=== PATIENT | female | born 1975 | race Caucasian/White ===

== ENCOUNTER → 2024-02-16 07:19 | Outpatient (REF) | payer BC, SELFPAY | LOC: WDC 07:19 | PROVIDERS: ATTENDING PHYSICIAN Nurse Practitioner Primary Care | DX: Z12.31 Encounter for screening mammogram for malignant neoplasm of breast (principal) | CPT/HCPCS: 77063; 77067 ==

== ENCOUNTER 2024-11-20 13:31 | Emergency (ER) | payer BC, SELFPAY ==
[2024-11-20 13:34] VITALS: BP 149/85
--- NOTE | 2024-11-20 13:58 | ED.GENMED ---
History of Present Illness
General
Chief Complaint: Chest Pain
Source: patient
Exam Limitations: none
Time Seen by Provider: 11/20/24 13:58
Nursing documentation reviewed up to this point in time: agreed with
History of Present Illness
History of Present Illness:
The patient is a pleasant 49-year-old female who reports intermittent episodes of very brief twinges in her chest. Patient reports that this started about 3 days ago. Patient reports that these twinges last a few seconds and do not seem correlated
with eating, breathing or exertion. Patient also feels associated shortness of breath on exertion. She denies leg pain and leg swelling. She denies a history of lung disease and smoking. She denies a history of PE and DVT.
Past History
Past History
ED Past Medical History: IDDM
ED Past Surgical History: Cholecystectomy
Social History
Tobacco: Non-smoker
Alcohol: None
Drug: None
Personal: Other
Living: alone
Employment: Employed
Family History
Family History: Sudden ; Negative CAD
Review of Systems
Review of Systems
Allergies reviewed?: Yes
All Other Systems: ROS reviewed and negative except as documented in HPI and ROS
Constitutional: Reports no symptoms
EENT: Reports no symptoms
Respiratory: Reports trouble breathing
Cardiac: Reports chest pain
ABD/GI: Reports no symptoms
: Reports no symptoms
Musculoskeletal: Reports no symptoms
Skin: Reports no symptoms
Neurological: Reports no symptoms
Endocrine: Reports no symptoms
Hematologic/Lymphatic: Reports no symptoms
Psychiatric: Reports no symptoms
Phy Exam
Physical Exam
Physical Exam:
Physical Exam
General: no apparent distress, not acutely ill. Well appearing, conversational
Neck: supple.
Heart: s1/s2 regular rate and rhythm, no murmur.
Lungs: no acute respiratory distress. clear bilaterally
Abdomen: Soft, nontender
Neuro: alert and oriented. no focal neurological deficits
Skin: no rash
Psychiatric: well kept. interactive and cooperative
Extremities: no edema. no calf tenderness. negative homans.
Scores
Heart Score for Chest Pain Patients
STEMI patient?: No
History: Slightly or Non-Suspicious
ECG: Normal
Age: >45 - <65 years
Risk Factors: 1 or 2 Risk Factors
Troponin: </= Normal Limit
Heart Score for Chest Pain Patients: 2
Heart Score Risk: 2.5% MACE over next 6 weeks
Course
Orders/Labs/Results
Orders:
Orders
11/20/24 13:32
Electrocardiogram (*1) Urgent
Reason for Study: Chest Pain
EKG- Treatment ONCE
11/20/24 14:10
CR Chest - 2 Views Urgent
Comment:
Reason For Exam: CP
11/20/24 14:22
Complete Blood Count/With Diff Urgent
Comprehensive Metabolic Panel Urgent
Troponin I Urgent
Abnormal Lab Results
11/20/24
14:22
RBC 3.98 L 10^6/uL
(4.20-5.40)
Hgb 11.2 L g/dL
(12.0-16.0)
Hct 34.3 L %
(37.0-47.0)
MCHC 32.7 L g/dL
(33.0-37.0)
Glucose 118 H mg/dl
(70-99)
ALT 43 H U/L
(0-35)
11/20/24 14:22
11/20/24 14:22
Vital Signs
Initial and Last Documented VS:
Initial Vital Signs
Temp Pulse Resp BP Pulse Ox
98.7 F 81 16 149/85 98
11/20/24 13:34 11/20/24 13:34 11/20/24 13:34 11/20/24 13:34 11/20/24 13:34
Last Documented Vital Signs
Temp Pulse Resp BP Pulse Ox
98.7 F 79 18 144/86 96
11/20/24 13:34 11/20/24 14:28 11/20/24 14:28 11/20/24 14:28 11/20/24 14:28
MDM/Problems Addressed
Differential Diagnosis Includes:
Acute coronary syndrome, musculoskeletal chest pain, gastritis
MDM/Problems Addressed:
Patient presents with brief episodes of acute chest pain
Chronic conditions affecting care: DM
Acute Exacerbation and/or Progression of Chronic Illness:
Patient may be acutely hyperglycemic
*Radiology
Radiology exam reviewed: preliminary read by ED provider (Chest x-ray checked by me. No acute disease) and radiology read reviewed
*Pulse Oximetry
Patient hypoxic: no
*EKG
Interpreted by ED Provider?: Yes
Interpretation: normal
Comparison EKG: no comparison EKG present
Rate: normal
Rhythm: sinus
[place]: normal axis
Interval: normal interval
QRS Pattern: normal QRS
Ischemia: no ischemia
*[employer] Interpretation
Rate: normal
Interpretation: normal
Rhythm: sinus
*Critical Care Note
Total Time (30-74mins, 75-104mins- exclusive of procedures): Not Applicable
Data Reviewed
Review of Other/Old Records Reveals: Operative Reports (Cholecystectomy report reviewed from 2008)
Source: patient
Update Note
Update Note:
Patient remains very well and comfortable appearing she is smiling and conversational. It is doubtful she is acute coronary syndrome given her atypical chest pain, nonischemic EKG and normal troponin
ED Attending Note
-
Portions of this chart may have been created with voice recognition software.� Occasional wrong word or��sound alike� substitutions may have occurred due to the inherent limitations of voice recognition software.
Discharge Plan
Departure
Patient Disposition: Home (Routine Discharge)
Date of Disposition: 11/20/24
Time of Disposition: 15:14
Patient with high blood pressure during this ER visit?: Yes
Condition: Good
Discharge Problem:
Chest pain in adult
Instructions: Chest Pain PCP Follow Up, BLOOD PRESSURE
Prescriptions:
No Action
(DME) subcutaneous insulin pump [Insulin Pump [id number]] 1 PKT misc
INFUSION ACHS
Patient Comments:
Pt adjusts how many units as to her meals
lorazepam 0.5 MG tablet
0.5 mg PO BIDPRN PRN (Reason: anxiety) Qty: 0 0RF
Referrals:
Stefanie Ricks CRNP [Family Provider] -
Activity Restrictions/Additional Instructions:
Follow-up with your primary care doctor within 1 week
Interventions
Interventions:
*Risk Screen - Suicide Last Done: 11/20/24 13:34
*Neglect/Abuse Screening Last Done: 11/20/24 13:34
*ED- Fall Risk Assessment Last Done: 11/20/24 14:28
*ED COVID-19 Vaccine History Last Done: 11/20/24 14:28
ED- Cardiac Assessment Last Done: 11/20/24 14:28
Discharge Date and Time
Print Language: ICELANDIC
[2024-11-20 14:28] VITALS: BP 144/86; BMI 37.3
--- NOTE | 2024-11-20 14:42 | EDRN ---
Received patient on stretcher with c/o intermittent chest pain that occurs on exertion and at rest. +nausea intermittently. Denies SOB and radiation.
[2024-11-20 15:00] LABS: % Basophils 0.8 % (0-2); % Eosinophils 2.1 % (0-6); % Immature Granulocytes 0.3 % (0-0.5); % Lymphocytes 33.9 % (20.5-51.1); % Monocytes 7.9 % (1.7-9.3); Absolute Basophils 0.1 10^3/uL (0-0.2); Absolute Eosinophils 0.2 10^3/uL (0-0.7); Absolute Lymphocytes 2.6 10^3/uL (1.2-3.4); Absolute Monocytes 0.6 10^3/uL (0.1-0.6); Absolute Neutrophils 4.2 10^3/uL (1.4-6.5); Hematocrit 34.3 % (37.0-47.0); Hemoglobin 11.2 g/dL (12.0-16.0); Mean Corp Hgb Conc. 32.7 g/dL (33.0-37.0); Mean Corpuscular Hgb 28.1 pg (27.0-31.0); Mean Corpuscular Volume 86.2 fL (81.0-99.0); Mean Platelet Volume 8.8 fL (7.4-10.4); Nucleated Red Blood Cells % 0 %; Platelet Count 377 10^3/uL (130-400); Red Blood Cell Count 3.98 10^6/uL (4.20-5.40); Red Cell Dist. Width 14.3 % (11.5-14.5); White Blood Cell Count 7.6 10^3/uL (4.8-10.8)
[2024-11-20 15:02] LABS: Troponin I < 0.012 ng/ml
[2024-11-20 15:08] LABS: ALT (SGPT) 43 U/L (0-35); AST (SGOT) 34 U/L (14-36); Albumin 3.7 g/dl (3.5-5.0); Alkaline Phosphatase 92 U/L (38-126); Blood Urea Nitrogen 11 mg/dl (7-17); Carbon Dioxide 28 mmol/L (22-30); Chloride 105 mmol/L (98-107); Estimated Creatinine Clearance 101 ml/min; Glucose 118 mg/dl (70-99); Potassium 4.7 mmol/L (3.5-5.1); Sodium 138 mmol/L (135-145); Total Bilirubin 0.5 mg/dl (0.2-1.3); Total Protein 6.4 g/dl (6.3-8.2); eGFR > 60.00
== END 2024-11-20 15:34 | disposition home or self-care (01) ==
LOC: EMR 13:31
PROVIDERS: EMERGENCY PHYSICIAN Emergency Medicine; FAMILY PHYSICIAN Nurse Practitioner Primary Care
DX: R07.89 Other chest pain (principal); E11.9 Type 2 diabetes mellitus without complications; Z79.4 Long term (current) use of insulin; Z90.49 Acquired absence of other specified parts of digestive tract
CPT/HCPCS: 99285; 71046; 80053; 84484; 85025; 93005

== ENCOUNTER 2024-11-26 17:14 | Emergency (ER) | payer BC, SELFPAY ==
[2024-11-26 17:21] VITALS: BP 180/96
[2024-11-26 17:34] LABS: Hematocrit 37.7 % (37.0-47.0); Hemoglobin 12.4 g/dL (12.0-16.0); Mean Corp Hgb Conc. 32.9 g/dL (33.0-37.0); Mean Corpuscular Hgb 28.3 pg (27.0-31.0); Mean Corpuscular Volume 86.1 fL (81.0-99.0); Mean Platelet Volume 8.3 fL (7.4-10.4); Platelet Count 418 10^3/uL (130-400); Red Blood Cell Count 4.38 10^6/uL (4.20-5.40); Red Cell Dist. Width 14.3 % (11.5-14.5); White Blood Cell Count 8.5 10^3/uL (4.8-10.8)
[2024-11-26 17:53] LABS: ALT (SGPT) 56 U/L (0-35); AST (SGOT) 38 U/L (14-36); Albumin 4.5 g/dl (3.5-5.0); Alkaline Phosphatase 99 U/L (38-126); Blood Urea Nitrogen 19 mg/dl (7-17); Carbon Dioxide 27 mmol/L (22-30); Chloride 104 mmol/L (98-107); Glucose 96 mg/dl (70-99); Potassium 4.4 mmol/L (3.5-5.1); Sodium 140 mmol/L (135-145); Total Bilirubin 0.4 mg/dl (0.2-1.3); Total Protein 7.3 g/dl (6.3-8.2); eGFR > 60.00
[2024-11-26 17:57] LABS: Troponin I < 0.012 ng/ml
[2024-11-26 18:43] LABS: Absolute Neutrophils -Man Diff 4.1 10^3/uL (1.4-6.5); Atypical Lymphocytes 6 %; Band Neutrophils 0 % (0-3); Eosinophils 2 % (0-6); Lymphocytes 40 % (20-51); Monocytes 3 % (2-9); Normal RBC Morphology Yes; Platelets Checked Yes; Segmented Neutrophils 49 % (42-75); Total Cells Counted 100
[2024-11-26 19:36] VITALS: BP 145/67
[2024-11-26 19:37] VITALS: BMI 36.8
[2024-11-26 20:00] VITALS: BP 129/94
--- NOTE | 2024-11-26 20:19 | ED.GENMED ---
History of Present Illness
General
Chief Complaint: Chest Pain
Source: patient
Exam Limitations: none
Time Seen by Provider: 11/26/24 19:49
History of Present Illness
History of Present Illness:
49-year-old female presents with persistent chest pain. This has been about a week and a half worth of chest pain. It is made worse with exertion. Is made worse with stress. She denies any pleuritic component. It is not made worse with eating.
She describes it as a dull ache that radiates to the left shoulder at times. History of cholecystectomy, IDDM, GERD.
Past History
Past History
ED Past Medical History: IDDM
ED Past Surgical History: Cholecystectomy
Social History
Tobacco: Non-smoker
Alcohol: None
Drug: None
Personal: Other
Living: alone
Employment: Employed
Family History
Family History: Sudden ; Negative CAD
Phy Exam
Physical Exam
Physical Exam:
General: Well-appearing female no acute respiratory distress
HEENT: Normocephalic atraumatic
Heart: Regular rate and rhythm no murmurs
Lungs: Clear no wheeze
Abdomen is soft nontender nondistended extremities: No cyanosis or edema
Skin: Warm no rash
Scores
Heart Score for Chest Pain Patients
STEMI patient?: No
History: Slightly or Non-Suspicious
ECG: Normal
Age: >45 - <65 years
Risk Factors: 1 or 2 Risk Factors
Troponin: </= Normal Limit
Heart Score for Chest Pain Patients: 2
Heart Score Risk: 2.5% MACE over next 6 weeks
Course
Orders/Labs/Results
Orders:
Orders
11/26/24 17:14
Electrocardiogram (*1) Urgent
Reason for Study: Chest Pain
EKG- Treatment ONCE
11/26/24 17:26
Complete Blood Count/With Diff Urgent
Comprehensive Metabolic Panel Urgent
HCG, Serum Qualitative Screen Urgent
Comment: ADD ON
Lipase Urgent
Comment: ADD ON
Manual Differential Urgent
Troponin I Urgent
11/26/24 20:16
CT Chest PE Study Urgent
Comment:
Reason For Exam: chest pain
11/26/24 20:21
Add On- LAB Urgent
Tests Added?: lipase
11/26/24 20:29
Add On- LAB Urgent
Tests Added?: HCG Qual.
Abnormal Lab Results
11/26/24
17:26
MCHC 32.9 L g/dL
(33.0-37.0)
Plt Count 418 H 10^3/uL
(130-400)
BUN 19 H mg/dl
(7-17)
AST 38 H U/L
(14-36)
ALT 56 H U/L
(0-35)
11/26/24 17:26
11/26/24 17:26
Vital Signs
Initial and Last Documented VS:
Initial Vital Signs
Temp Pulse Resp Pulse Ox
98.2 F 83 16 98
11/26/24 17:17 11/26/24 17:17 11/26/24 17:17 11/26/24 17:17
Last Documented Vital Signs
Temp Pulse Resp BP Pulse Ox
98.2 F 77 22 150/73 99
11/26/24 17:17 11/26/24 22:00 11/26/24 22:00 11/26/24 22:00 11/26/24 22:00
MDM/Problems Addressed
Differential Diagnosis Includes:
Chest pain. Consider ACS versus reflux versus PE versus dissection. Chest pain ongoing for 10 days. Troponin undetectable. Unlikely to be ACS. Given persistence and worsening pain, will order PE study of chest. I reviewed last visit. She was
here about a week ago had a clear chest x-ray. Patient tells me that her family doctor did hear a murmur during her follow-up visit from the ER, However I do not hear a murmur today
*Critical Care Note
Total Time (30-74mins, 75-104mins- exclusive of procedures): Not Applicable
Update Note
Update Note:
CT of chest PE study negative for acute finding. Workup otherwise negative. Atypical chest discomfort. No indication for admission. Do not suspect dissection PE ACS at this time. Will follow-up with cardiology.
ED Attending Note
-
Portions of this chart may have been created with voice recognition software.� Occasional wrong word or��sound alike� substitutions may have occurred due to the inherent limitations of voice recognition software.
Discharge Plan
Departure
Patient Disposition: Home (Routine Discharge)
Date of Disposition: 11/26/24
Time of Disposition: 22:41
Patient with high blood pressure during this ER visit?: No
Discharge Problem:
Chest pain
Instructions: Chest Pain CBC Follow Up
Prescriptions:
No Action
lorazepam 0.5 MG tablet
0.5 mg PO BIDPRN PRN (Reason: anxiety) Qty: 0 0RF
fluoxetine 40 mg Capsule
40 mg PO DAILY
metformin 1,000 mg Tablet
1,000 mg PO BID
omeprazole 20 mg Tablet,Delayed Release (Dr/Ec)
20 mg PO DAILY
famotidine [Pepcid] 20 mg Tablet
20 mg PO HS
Novolin R Regular U100 Insulin 100 unit/mL Solution
1 sliding scale dose SC DIRECTED
Rx Instructions:
The patient has an insulin pump.
losartan 100 mg Tablet
100 mg PO DAILY
ezetimibe [Zetia] 10 mg Tablet
10 mg PO HS
levocetirizine [Xyzal] 5 mg Tablet
5 mg PO HS
Rybelsus 3 mg Tablet
3 mg PO DAILY
Referrals:
UNKNOWN - PT DOES,NOT KNOW [Unknown Provider] -
Activity Restrictions/Additional Instructions:
Please return here for worsening symptoms otherwise follow-up with cardiology
Interventions
Interventions:
*Risk Screen - Suicide Last Done: 11/26/24 17:17
*General Assessment Last Done: 11/26/24 20:30
*Neglect/Abuse Screening Last Done: 11/26/24 17:17
*ED- Fall Risk Assessment Last Done: 11/26/24 20:30
*ED COVID-19 Vaccine History Last Done: 11/26/24 20:30
ED- Cardiac Assessment Last Done: 11/26/24 20:30
Discharge Date and Time
Print Language: BRITISH
[2024-11-26 21:03] LABS: Lipase 147 U/L (23-300)
[2024-11-26 21:09] LABS: HCG, Serum Qualitative Screen Negative
[2024-11-26 21:14] VITALS: BP 145/79
[2024-11-26 22:00] VITALS: BP 150/73
[2024-11-26 22:41] VITALS: BP 147/84
== END 2024-11-26 22:53 | disposition home or self-care (01) ==
LOC: EMR 17:14
PROVIDERS: Student in an Organized Health Care Education/Training Program; EMERGENCY PHYSICIAN Student in an Organized Health Care Education/Training Program; FAMILY PHYSICIAN Nurse Practitioner Primary Care
DX: R07.89 Other chest pain (principal); E11.9 Type 2 diabetes mellitus without complications
CPT/HCPCS: 99285; 71275; 80053; 83690; 84484; 84703; 85025; 93005; Q9967

== ENCOUNTER → 2024-12-03 09:03 | Outpatient (REF) | payer BC, SELFPAY | LOC: HWRCS 09:03 | PROVIDERS: ATTENDING PHYSICIAN Nurse Practitioner Primary Care | DX: E11.29 Type 2 diabetes mellitus with other diabetic kidney complication (principal); I10 Essential (primary) hypertension; R07.89 Other chest pain; R06.09 Other forms of dyspnea | CPT/HCPCS: 93017; 93306 ==

== ENCOUNTER → 2025-02-18 08:00 | Outpatient (REF) | payer BC, SELFPAY | LOC: WDC 08:00 | PROVIDERS: ATTENDING PHYSICIAN Nurse Practitioner Primary Care | DX: Z12.31 Encounter for screening mammogram for malignant neoplasm of breast (principal) | CPT/HCPCS: 77063; 77067 ==